=== PATIENT | female | born 1980 | race American Indian/Alaskan Native ===

== ENCOUNTER 2020-01-22 01:33 | Emergency (ER) | payer MEDICAID ==
[2020-01-22 08:00] VITALS: BP 115/72
[2020-01-22] MEDS ORDERED: METOCLOPRAMIDE 10 MG/2 ML INJ IV ONE (08:50)
[2020-01-22] MEDS ORDERED: diphenhydrAMINE 50 MG/ML VIAL IV ONE (08:50)
[2020-01-22] MEDS ORDERED: KETOROLAC 30 MG/1 ML INJ IV ONE (08:50)
[2020-01-22 09:25] LABS: Basophils # (Auto) 0.1 K/mm3 (0.0-0.1); Basophils % (Auto) 0.9 % (0.0-1.8); Eosinophils # (Auto) 0.1 K/mm3 (0.0-0.4); Eosinophils % (Auto) 2.1 % (0.0-4.3); Hematocrit 39.9 % (30.3-42.9); Hemoglobin 13.4 gm/dl (10.1-14.3); Lymphocytes # (Auto) 2.3 K/mm3 (1.2-5.4); Lymphocytes % (Auto) 39.5 % (13.4-35.0); Mean Corpuscular HGB Conc 34 % (30-34); Mean Corpuscular Volume 90 fl (79-97); Monocytes # (Auto) 0.5 K/mm3 (0.0-0.8); Monocytes % (Auto) 8.7 % (0.0-7.3); Platelet Count 240 K/mm3 (140-440); Red Blood Count 4.44 M/mm3 (3.65-5.03); Red Cell Distribution Width 13.7 % (13.2-15.2)
[2020-01-22 09:45] LABS: Alanine Aminotransferase 16 units/L (7-56); Albumin 4.1 g/dL (3.9-5); Blood Urea Nitrogen 13 mg/dL (7-17); Calcium 9.4 mg/dL (8.4-10.2); Hemolysis Index 6
[2020-01-22 09:50] LABS: BUN/Creatinine Ratio 22
--- NOTE | 2020-01-22 10:33 | Emergency Department Report ---
ED Headache HPI - General Chief Complaint: Headache Stated Complaint: HEADACHE/DIZZINESS/FACIAL NUMBNESS Time Seen by Provider: 01/22/20 08:26 - History of Present Illness Initial Comments: Patient is a 39-year-old female presents emergency room complaints of a constant left temporal headache that began yesterday at 4 PM. She has associated lightheadedness and nausea. She states that when the pain becomes uncomfortable she sees spots in her vision but denies any vision changes currently. She denies any fall or injury. She denies any vomiting, diarrhea, fever, neck stiffness, numbness, weakness. She has a past medical history of hypertension and borderline diabetes. She states that she took BC powder which usually r esolves her headaches but it did not help relieve her headache. She has an allergy to codeine and penicillin. She states that she has irregular menstrual cycles. Allergies/Adverse Reactions: Allergies Penicillins Allergy (Verified 03/26/16 15:06) Itching codeine Adverse Reaction (Verified 04/11/15 15:31) Itching Home Medications: Ambulatory Orders Benzonatate [Tessalon Perles] 100 mg PO Q8HR #20 capsule 10/02/15 Lisinopril/Hydrochlorothiazide [Zestoretic 10-12.5 mg] 12.5 each PO QDAY 10/02/15 traMADoL [Ultram] 50 mg PO Q6HR PRN #30 tablet 10/02/15 Fluconazole (Nf) [Diflucan TAB] 150 mg PO ONCE #1 tablet 03/27/16 metroNIDAZOLE [Flagyl] 500 mg PO Q12HR #14 tab 03/27/16 traMADoL [Ultram] 50 mg PO Q6HR PRN #14 tablet 03/27/16 Butalb/Acetaminophen/Caffeine [Fioricet 50-300-40 mg CAP] 1 cap PO Q8HR PRN #10 cap 01/22/20 ED Review of Systems ROS: Stated complaint: HEADACHE/DIZZINESS/FACIAL NUMBNESS Other details as noted in HPI Comment: All other systems reviewed and negative ED Past Medical Hx - Past Medical History Previous Medical History?: Yes Hx Hypertension: Yes Hx Headaches / Migraines: Yes Additional medical history: meningitis - Surgical History Past Surgical History?: Yes Additional Surgical History: R. shoulder, x 2 - Social History Smoking Status: Never Smoker Substance Use Type: None - Medications Home Medications: Home Medications Medication Instructions Recorded Confirmed Last Taken Type Benzonatate [Tessalon Perles] 100 mg PO Q8HR #20 capsule 10/02/15 Unknown Rx Lisinopril/Hydrochlorothiazide 12.5 each PO QDAY 10/02/15 10/02/15 10/02/15 History [Zestoretic 10-12.5 mg] traMADoL [Ultram] 50 mg PO Q6HR PRN #30 tablet 10/02/15 Unknown Rx Fluconazole (Nf) [Diflucan TAB] 150 mg PO ONCE #1 tablet 03/27/16 Unknown Rx metroNIDAZOLE [Flagyl] 500 mg PO Q12HR #14 tab 03/27/16 Unknown Rx traMADoL [Ultram] 50 mg PO Q6HR PRN #14 tablet 03/27/16 Unknown Rx Butalb/Acetaminophen/Caffeine 1 cap PO Q8HR PRN #10 cap 01/22/20 Unknown Rx [Fioricet 50-300-40 mg CAP] ED Physical Exam - General Limitations: No Limitations General appearance: alert, in no apparent distress - Head Head exam: Present: atraumatic, normocephalic - Eye Eye exam: Present: normal appearance, PERRL, EOMI. Absent: conjunctival injection, nystagmus, periorbital swelling, periorbital tenderness Pupils: Present: normal accommodation - ENT ENT exam: Present: mucous membranes moist - Neck Neck exam: Present: full ROM. Absent: meningismus - Respiratory Respiratory exam: Present: normal lung sounds bilaterally. Absent: respiratory distress, wheezes, rales, rhonchi, stridor, chest wall tenderness, accessory muscle use, decreased breath sounds, prolonged expiratory - Cardiovascular Cardiovascular Exam: Present: regular rate, normal rhythm, normal heart sounds. Absent: systolic murmur, diastolic murmur, rubs, gallop - Neurological Exam Neurological exam: Present: alert, oriented X3, CN II-XII intact, normal gait, other (normal finger to nose, normal heel to romano, 5/5 muscle strength in the BUE/BLE, sensation intact throughout, no focal neuro deficit). Absent: motor sensory deficit - Psychiatric Psychiatric exam: Present: normal affect, normal mood - Skin Skin exam: Present: warm, dry, intact ED Course Vital Signs 01/22/20 01/22/20 01:55 07:59 Temperature 97.8 F 97.8 F Pulse Rate 68 63 Respiratory 20 18 Rate Blood Pressure 110/72 Blood Pressure 115/72 [Left] O2 Sat by Pulse 97 97 Oximetry ED Medical Decision Making - Lab Data Result diagrams: 01/22/20 09:09 01/22/20 09:09 Lab Results 01/22/20 01/22/20 01/22/20 Range/Units 09:09 09:09 09:09 WBC 5.8 (4.5-11.0) K/mm3 RBC 4.44 (3.65-5.03) M/mm3 Hgb 13.4 (10.1-14.3) gm/dl Hct 39.9 (30.3-42.9) % MCV 90 (79-97) fl MCH 30 (28-32) pg MCHC 34 (30-34) % RDW 13.7 (13.2-15.2) % Plt Count 240 (140-440) K/mm3 Lymph % (Auto) 39.5 H (13.4-35.0) % [place] % (Auto) 8.7 H (0.0-7.3) % Eos % (Auto) 2.1 (0.0-4.3) % Baso % (Auto) 0.9 (0.0-1.8) % Lymph # (Auto) 2.3 (1.2-5.4) K/mm3 [place] # (Auto) 0.5 (0.0-0.8) K/mm3 Eos # (Auto) 0.1 (0.0-0.4) K/mm3 Baso # (Auto) 0.1 (0.0-0.1) K/mm3 Seg Neutrophils % 48.8 (40.0-70.0) % Seg Neutrophils # 2.8 (1.8-7.7) K/mm3 Sodium 139 (137-145) mmol/L Potassium 3.5 L (3.6-5.0) mmol/L Chloride 97.8 L (98-107) mmol/L Carbon Dioxide 33 H (22-30) mmol/L Anion Gap 12 mmol/L BUN 13 (7-17) mg/dL Creatinine 0.6 (0.6-1.2) mg/dL Estimated GFR > 60 ml/min BUN/Creatinine Ratio 22 % Glucose 104 H (65-100) mg/dL Calcium 9.4 (8.4-10.2) mg/dL Magnesium 2.10 (1.7-2.3) mg/dL Total Bilirubin 0.40 (0.1-1.2) mg/dL AST 17 (5-40) units/L ALT 16 (7-56) units/L Alkaline Phosphatase 66 (35-129) units/L Total Creatine Kinase 127 (30-135) units/L Total Protein 7.6 (6.3-8.2) g/dL Albumin 4.1 (3.9-5) g/dL Albumin/Globulin Ratio 1.2 % HCG, Qual Negative (Negative) Vital Signs 01/22/20 01/22/20 01:55 07:59 Temperature 97.8 F 97.8 F Pulse Rate 68 63 Respiratory 20 18 Rate Blood Pressure 110/72 Blood Pressure 115/72 [Left] O2 Sat by Pulse 97 97 Oximetry - Radiology Data Radiology results: report reviewed CT BRAIN: 01/22/2020 INDICATION / CLINICAL INFORMATION: MCCARTNEY, lightheaded, blurry vision. COMPARISON: None available. FINDINGS: BRAIN/INTRACRANIAL STRUCTURES: Unenhanced CT images of the brain demonstrate no evidence of acute intracranial abnormality. Ventricles and sulci are normal in size and shape. There is no evidence of ischemic injury, hemorrhage, or mass. There are no abnormal extra-axial fluid collections. EXTRACRANIAL STRUCTURES: Unremarkable. IMPRESSION: No acute abnormality. Negative unenhanced CT of the brain. All CT scans at this location are performed using dose reduction to ALARA by means of automated exposure control. Signer Name: Julio Carter MD Signed: 01/22/2020 9:40 AM Workstation Name: [id number] - Medical Decision Making Patient is a 39-year-old female presents emergency room complaints of a constant left temporal headache that began yesterday at 4 PM. She has associated lightheadedness and nausea. She states that when the pain becomes uncomfortable she sees spots in her vision but denies any vision changes currently. She denies any fall or injury. She denies any vomiting, diarrhea, fever, neck stiffness, numbness, weakness. She has a past medical history of hypertension and borderline diabetes. She states that she took BC powder which usually resolves her headaches but it did not help relieve her headache. She has an allergy to codeine and penicillin. She states that she has irregular menstrual cycles. Vitals are normal. Labs are stable. No focal neuro deficit on exam. CT head:IMPRESSION: No acute abnormality. Negative unenhanced CT of the brain. Patient given IV Toradol, Reglan, Benadryl and symptoms improved and she was feeling better and ready to go home. Discussed all results with patient and answered questions. Patient given prescription for Fioricet. Advised patient Please take medication as prescribed as needed. Increase your water intake. F ollow-up with your primary care doctor. Return to emergency room for any new or worsening symptoms. - Differential Diagnosis Migraine, tension/cluster MCCARTNEY, CVA, ICH, mass,dehydration, anemia, ASHA, HTN Critical care attestation.: If time is entered above; I have spent that time in minutes in the direct care of this critically ill patient, excluding procedure time. ED Disposition Clinical Impression: Acute headache Qualifiers: Headache type: unspecified Intractability: not intractable Qualified Code(s): R51.9 - Headache, unspecified Disposition: DC- TO HOME OR SELFCARE Is pt being admited?: No Does the pt Need Aspirin: No Condition: Stable Instructions: Migraine Headache (ED), Acute Headache (ED) Additional Instructions: Please take medication as prescribed as needed. Increase your water intake. Follow-up with your primary care doctor. Return to emergency room for any new or worsening symptoms. Prescriptions: Butalb/Acetaminophen/Caffeine [Fioricet 50-300-40 mg CAP] 1 cap PO Q8HR PRN #10 cap PRN Reason: headache Referrals: ADALID MACK MD [Primary Care Provider] - 2-3 Days Forms: Work/School Release Form(ED) Time of Disposition: 10:51 Print Language: GREENLANDIC
--- NOTE | 2020-01-22 10:44 | Cat Scan Report ---
CT BRAIN: 01/22/2020 INDICATION / CLINICAL INFORMATION: MCCARTNEY, lightheaded, blurry vision. COMPARISON: None available. FINDINGS: BRAIN/INTRACRANIAL STRUCTURES: Unenhanced CT images of the brain demonstrate no evidence of acute int racranial abnormality. Ventricles and sulci are normal in size and shape. There is no evidence of ischemic injury, hemorrhage, or mass. There are no abnormal extra-axial fluid collections. EXTRACRANIAL STRUCTURES: Unremarkable. IMPRESSION: No acute abnormality. Negative unenhanced CT of the brain. All CT scans at this location are performed using dose reduction to ALARA by means of automated expos ure control. Signer Name: Julio Carter MD Signed: 01/22/2020 10:40 AM Workstation Name: [id number]
== END 2020-01-22 11:14 | disposition home or self-care (01) ==
LOC: ED 01:33
DX: R51.9 Headache, unspecified (principal); I10 Essential (primary) hypertension; Z86.69 Personal history of other diseases of the nervous system and sense organs; Z79.899 Other long term (current) drug therapy
CPT/HCPCS: 36415; 70450; 80053; 82550; 83735; 84703; 85025; 96374; 96375; 99284; J1200; J1885; J2765